=== PATIENT | male | born 1970 | race African-American/Black ===

== ENCOUNTER 2016-05-19 11:48 | Emergency (ER) | payer SELFPAY ==
[~2016-05-19] VITALS: Ht 177.8 cm; Wt 75.5 kg
[~2016-05-19 11:48] MED LIST: Z.0.NO CURRENT MEDS
[2016-05-19 11:51] VITALS: BP 180/106; PULSE 101; RESP 16; TEMP 98.9; O2SAT 98
[2016-05-19] MEDS: SODIUM CHLOR 0.9% 1000 ML INJ 1,000 ML IV ONE (12:06)
[2016-05-19 12:09] VITALS: RESP 20; O2SAT 98
--- NOTE | 2016-05-19 12:14 | PD ---
HPI Chief Complaint: Headache Time Seen by Provider: 12:10 Travel History International Travel<30 days: No Contact w/Intl Traveler<30days: No Traveled to known affect area: No History of Present Illness HPI Patient comes in complaining of headache that began 2 days ago. Patient reports sudden onset while he was at work. Patient denies any trauma. Patient thought that he may have just been fighting a hangover as he had been doing some "heavy drinking" recently. Patient also admitted to cocaine use a few days prior to headache onset. Patient states headache has been constant though has had some waxing and waning. Patient tried multiple [id number] medication with minimal improvement of symptoms. Patient denies any history of headache. Denies previous headache like this. Patient denies any change in vision, vomiting, phonophobia, phonophobia, chest pain, shortness of breath, neck pain, back pain, or family history of headaches. PFSH Past Medical History Asthma: Yes Past Surgical History Other Surgery: Yes (HERNIA REPAIR, "SOFT SPOT" REMOVED) Social History Alcohol Use: Yes (EVERY OTHER DAY) Tobacco Use: Yes (1/2PPD) Substance Use: Yes (MARIJUANA, COCAINE) Allergies-Medications (Allergen,Severity, Reaction): Coded Allergies: No Known Allergies (Verified , 05/19/16) Reported Meds & Prescriptions Reported Meds & Active Scripts Active Naprosyn (Naproxen) 500 Mg Tab 500 Mg PO Q12HR PRN Review of Systems Except as stated in HPI: all other systems reviewed are Neg Physical Exam Narrative GENERAL: Well-developed, well nourished, in no acute distress, and non-ill appearing. SKIN: Focused skin assessment warm and dry. HEAD: Atraumatic. Normocephalic. EYES: Pupils equal and round. EOMI. No scleral icterus. No injection or drainage. ENT: No nasal bleeding or discharge. Mucous membranes pink and moist. NECK: Trachea midline. No JVD. Supple. No nuclear rigidity. CARDIOVASCULAR: Regular rate and rhythm. No murmur appreciated. RESPIRATORY: No accessory muscle use. No respiratory distress. Clear to auscultation. Breath sounds equal bilaterally. GASTROINTESTINAL: Abdomen soft, non-tender, nondistended. Hepatic and splenic margins not palpable. Normal bowel sounds 4. No pulsatile mass. MUSCULOSKELETAL: No obvious deformities. No clubbing. No cyanosis. No edema. Full range of motion. NEUROLOGICAL: Awake and alert. No obvious cranial nerve deficits. Motor grossly within normal limits. Normal speech. PSYCHIATRIC: Appropriate mood and affect; insight and judgment normal. Data Data Last Documented VS Vital Signs Date Time Temp Pulse Resp B/P Pulse Ox O2 Delivery O2 Flow Rate FiO2 05/19/16 14:58 72 18 157/105 97 Room Air 05/19/16 11:51 98.9 Orders Complete Blood Count With Diff (05/19/16 12:06) Basic Metabolic Panel (Bmp) (05/19/16 12:06) Prothrombin Time / Inr (Pt) (05/19/16 12:06) Act Partial Throm Time (Ptt) (05/19/16 12:06) Ct Brain W/O Iv Contrast(Rout) (05/19/16 12:06) Ecg Monitoring (05/19/16 12:06) Iv Access Insert/Monitor (05/19/16 12:06) Oximetry (05/19/16 12:06) Sodium Chloride 0.9% Flush (Ns Flush) (05/19/16 12:15) Metoclopramide Inj (Reglan Inj) (05/19/16 12:15) Sodium Chlor 0.9% 1000 Ml Inj (Ns 1000 M (05/19/16 12:06) Cta Brain W Iv Contrast W 3d (05/19/16 ) Cta Neck W Iv Contrast W 3d (05/19/16 ) Iohexol 350 Inj (Omnipaque 350 Inj) (05/19/16 13:32) Acetaminophen (Tylenol) (05/19/16 14:00) Labs Laboratory Tests Test 05/19/16 12:15 White Blood Count 9.5 TH/MM3 Red Blood Count 5.01 MIL/MM3 Hemoglobin 15.0 GM/DL Hematocrit 45.3 % Mean Corpuscular Volume 90.4 FL Mean Corpuscular Hemoglobin 30.0 PG Mean Corpuscular Hemoglobin 33.2 % Concent Red Cell Distribution Width 13.6 % Platelet Count 324 TH/MM3 Mean Platelet Volume 6.5 FL Neutrophils (%) (Auto) 62.3 % Lymphocytes (%) (Auto) 28.0 % Monocytes (%) (Auto) 7.5 % Eosinophils (%) (Auto) 1.6 % Basophils (%) (Auto) 0.6 % Neutrophils # (Auto) 6.0 TH/MM3 Lymphocytes # (Auto) 2.7 TH/MM3 Monocytes # (Auto) 0.7 TH/MM3 Eosinophils # (Auto) 0.1 TH/MM3 Basophils # (Auto) 0.1 TH/MM3 CBC Comment DIFF FINAL Differential Comment Prothrombin Time 11.6 SEC Prothromb Time International 1.0 RATIO Ratio Activated Partial 24.8 SEC Thromboplast Time Sodium Level 141 MEQ/L Potassium Level 4.0 MEQ/L Chloride Level 107 MEQ/L Carbon Dioxide Level 26.0 MEQ/L Anion Gap 8 MEQ/L Blood Urea Nitrogen 10 MG/DL Creatinine 1.00 MG/DL Estimat Glomerular Filtration 99 ML/MIN Rate Random Glucose 118 MG/DL Calcium Level 9.2 MG/DL MDM Medical Decision Making Medical Screen Exam Complete: Yes Emergency Medical Condition: Yes Differential Diagnosis Intracranial hemorrhage, aneurysm, positive headache, hypertension, elevated blood pressure, renal failure, electrolyte abnormality, other Narrative Course The patients headache appeared nonspecific. Due to patients subjective complaint and presentation, a head CT and CTA was performed which was normal and without evidence of blood, aneurysm, and/or mass. The patient looks great, feels better and is in no significant objective discomfort currently. The patient is in no distress and the patients neurological exam is normal, neck is supple and without meningismus. The headache is not consistent with meningitis or infection, nor does it appear consistent with intracranial bleed ( SAH etc.), carotid dissection, nor mass by history, examination and evaluation. There is very little clinical evidence to suggest missed hemorrhage on CT and/ or sentinel bleed thus an invasive procedure such as a lumbar puncture was not performed. Medication and instructions to rest in a cool dark quite place were discussed with the patient. Also, outpatient follow up was instructed. The patient was instructed to return as needed or if symptoms changed or worsened, fever developed or inability to tolerate fluids. The patient agreed with plan. The patient has no prior history of hypertension. The patient denied changes in vision, nausea, vomiting, dizziness, weakness or loss of sensation. Exam is unremarkable. The patient is in no distress and the patients neurological exam is normal, neck is supple and without meningismus. The headache is not consistent with meningitis or infection, nor is it consistent with intracranial bleed (SAH etc.), carotid dissection, nor mass by history and examination. The headache does not appear to be associated with the patients elevated blood pressures. The patient denied and chest, back or abdominal pain. The patient also denied any shortness of breath, dyspnea on exertion, orthopnea or PND. The patient denies any edema to extremities. The patients blood pressures at discharge were at an acceptable level. The headache was also improved. I discussed with the patient that the standard of care is to not initiate antihypertensive medications at this time and for them to follow up with a primary care physician for continued outpatient evaluation and potential initiation of blood pressure medications. Return warnings were given to the patient and the patient agreed with plan of care. Patient in no obvious distress upon re-evaluation. All pertinent laboratory/ Radiology result(s) discussed with patient/family. Patient was asked if they wanted to speak to my attending, which the patient did not wish to do at this time. I discussed patient with Dr. George prior to discharge, who is in agreement with plan of care and disposition. Any questions/concerns in reference to patient diagnosis/condition discussed and clarified prior to patient's discharge. Reinforced sheer importance of close follow up with patient 's primary physician or primary care clinic. Instructed patient to return to ED immediately, if symptoms return/worsen. Pt showed understanding of above instructions. Further instructions and recommendations were detailed in discharge paperwork. Pt ambulated without difficulty out of ED at discharge. Diagnosis Primary Impression: Headache Qualified Code: R51 - Acute nonintractable headache, unspecified headache type Additional Impression: Elevated blood pressure reading Referrals: Caroline Chew MD [facility] Patient Instructions: Acute Headache (ED), General Instructions, Hypertension ( DC) Additional Instructions: Follow-up with your primary care physician and neurologist for further evaluation or headache injury elevated blood pressure noted here today. Take all medication as prescribed. Return to the emergency department if symptoms get worse. Med/Other Pt SpecificInfo: Prescription(s) given Scripts Naproxen (Naprosyn)500 Mg [id number] Mg PO Q12HR PRN (HEADACHE) #10 TAB Ref 0 Prov:Virginie George MD 05/19/16 Disposition: 01 DISCHARGE HOME Condition: Stable Nolan Arias May 19, 2016 12:14
[2016-05-19] MEDS ORDERED: SODIUM CHLORIDE 0.9% FLUSH 10 ML FLUSH IVF PRN (12:15)
[2016-05-19] MEDS: METOCLOPRAMIDE HCL 10 MG/2 ML VIAL IVP ONE (12:15)
[2016-05-19 12:29] LABS: BASOPHIL # 0.1 TH/MM3 (0-0.2); BASOPHIL % 0.6 % (0.0-2.0); EOSINOPHIL # 0.1 TH/MM3 (0-0.4); EOSINOPHIL % 1.6 % (0.0-4.0); HEMATOCRIT 45.3 % (39.0-51.0); HEMO FLAGS DIFF FINAL; LYMPHOCYTE # 2.7 TH/MM3 (1.0-4.8); MEAN CELL VOLUME 90.4 FL (80.0-100.0); MEAN CORPUSCULAR HGB CONC 33.2 % (32.0-36.0); MONO % 7.5 % (0.0-8.0); NEUT % 62.3 % (16.0-70.0); PLATELET COUNT 324 TH/MM3 (150-450); RED BLOOD COUNT 5.01 MIL/MM3 (4.50-5.90); RED CELL DISTRIBUTION WIDTH 13.6 % (11.6-17.2); WHITE BLOOD COUNT 9.5 TH/MM3 (4.0-11.0)
[2016-05-19 12:37] LABS: APTT (PATIENT) 24.8 SEC (24.3-30.1); PROTHROMBIN TIME - PATIENT 11.6 SEC (9.8-11.6)
[2016-05-19] MEDS: IOHEXOL 350 MG/ML 10 ML VIAL (for RAD DIAG) IV ONE (13:32)
[2016-05-19] MEDS: ACETAMINOPHEN 325 MG TAB PO ONE (14:00)
--- NOTE | 2016-05-19 14:37 | RADRPT ---
EXAM DATE/TIME: 05/19/2016 13:20 [facility] COMPARISON: No previous studies available for comparison. INDICATIONS : Severe headache. Evaluate for aneurysm. IV CONTRAST: 70 cc Omnipaque 350 (iohexol) IV ; Cumulative dose for multiple exams. RADIATION DOSE: 17.21 CTDIvol (mGy) ; Combined studies MEDICAL HISTORY : None SURGICAL HISTORY : Inguinal hernia repair. Head surgery. ENCOUNTER: Initial ACUITY: 3 days PAIN SCALE: 7/10 LOCATION: cranial TECHNIQUE: Volumetric scanning was performed using a multi-row detector CT scanner. The data was post processed with a variety of visualization algorithms including full volume maximum intensity projection, multi -planar sliding thin slab reformation, curved planar reformation, and surface rendering techniques. Using automated exposure control and adjustment of the mA and/or kV according to patient size, radiat ion dose was kept as low as reasonably achievable to obtain optimal diagnostic quality images. FINDINGS: There is excellent visualization of the major intracranial arteries out to the second-order branch ve ssels. There is no evidence for aneurysm, vessel truncation or stenosis, and no evidence for vascula r malformation. Postsurgical changes involving the posterior cranium with surgical clips. No evidence of aneurysm. CONCLUSION: No evidence of aneurysm. No evidence of hemorrhage.. Kari Montiel MD on May 19, 2016 at 14:33 Board Certified Radiologist. This report was verified electronically.
--- NOTE | 2016-05-19 14:39 | RADRPT ---
EXAM DATE/TIME: 05/19/2016 13:20 [facility] COMPARISON: No previous studies available for comparison. INDICATIONS : Severe headache. RADIATION DOSE: 56.35 CTDIvol (mGy) MEDICAL HISTORY : None SURGICAL HISTORY : Inguinal hernia repair. Head surgery. ENCOUNTER: Initial ACUITY: 3 days PAIN SCALE: 7/10 LOCATION: cranial TECHNIQUE: Multiple contiguous axial images were obtained of the head. Using automated exposure control and adj ustment of the mA and/or kV according to patient size, radiation dose was kept as low as reasonably a chievable to obtain optimal diagnostic quality images. FINDINGS: CEREBRUM: The ventricles are normal for age. No evidence of midline shift, mass lesion, hemorrhage or acute in farction. No extra-axial fluid collections are seen. POSTERIOR FOSSA: The cerebellum and brainstem are intact. The 4th ventricle is midline. The cerebellopontine angle i s unremarkable. EXTRACRANIAL: The visualized portion of the orbits is intact. SKULL: Post surgical changes within the posterior midline craniotomy with surgical clips. No evidence of adj acent parenchymal abnormality or hemorrhage. CONCLUSION: No acute disease. Kari Montiel MD on May 19, 2016 at 14:36 Board Certified Radiologist. This report was verified electronically.
[2016-05-19 14:58] VITALS: BP 157/105; PULSE 72; RESP 18; O2SAT 97
[2016-05-19] MEDS ORDERED: NAPR500 PO (15:02)
--- NOTE | 2016-05-19 15:22 | RADRPT ---
EXAM DATE/TIME: 05/19/2016 13:20 [facility] COMPARISON: No previous studies available for comparison. INDICATIONS : Severe headache. Evaluate for aneurysm. IV CONTRAST: 70 cc Omnipaque 350 (iohexol) IV ; Cumulative dose for multiple exams. RADIATION DOSE: 17.21 CTDIvol (mGy) ; Combined studies MEDICAL HISTORY : None SURGICAL HISTORY : Inguinal hernia repair. Head surgery. ENCOUNTER: Initial ACUITY: 3 days PAIN SCALE: 7/10 LOCATION: neck Elevated flow velocities and ICA/CCA ratios have been found to correlate with increased degrees of vessel stenosis, calculated as percentage of diameter relative to a normal segment of distal ICA/CCA. TECHNIQUE: Volumetric scanning was performed using a multirow detector CT scanner. The data was post processed with a variety of visualization algorithms including full-volume maximum intensity projection, multip lanar sliding thin-slab reformation, curved-planar reformation, and surface-rendering techniques. Us ing automated exposure control and adjustment of the mA and/or kV according to patient size, radiatio n dose was kept as low as reasonably achievable to obtain optimal diagnostic quality images. FINDINGS: AORTIC ARCH: There is a three-vessel origin of the great vessels from the aorta. No evidence of ostial narrowing. RIGHT CAROTID: The common carotid artery is intact. The carotid bulb has a normal configuration without ulceration o r narrowing. The internal carotid artery lumen is smooth without stenosis. The external carotid sofiya ry is intact. LEFT CAROTID: The common carotid artery is intact. The carotid bulb has a normal configuration without ulceration or narrowing. The internal carotid artery lumen is smooth without stenosis. The external carotid ar jo is intact. VERTEBRALS: The vertebral arteries have a symmetric diameter. No stenotic lesions are seen. CONCLUSION: 1. Negative carotid CTA except for minimal nonocclusive calcified plaque at the right carotid bifurca tion. Jorge Montiel MD on May 19, 2016 at 15:11 Board Certified Radiologist. This report was verified electronically.
== END 2016-05-19 15:15 | disposition home or self-care (01) ==
LOC: NEPD 11:48
DX: R51 Headache (principal); R03.0 Elevated blood-pressure reading, without diagnosis of hypertension; F17.200 Nicotine dependence, unspecified, uncomplicated; J45.909 Unspecified asthma, uncomplicated; F12.10 Cannabis abuse, uncomplicated; F14.10 Cocaine abuse, uncomplicated; Z79.899 Other long term (current) drug therapy
CPT/HCPCS: 70450; 70496; 70498; 80048; 85025; 85610; 85730; 96361; 96374; 99284; J2765; J7030; Q9967